=== PATIENT | male | born 1950 | race Caucasian/White ===

== ENCOUNTER 2017-12-04 08:14 | Emergency (ER) | payer OTHER, BC ==
[2017-12-04] MEDS ORDERED: HYDROCODONE/APAP 10/325 TAB ONE (09:57)
[2017-12-04 09:58] LABS: Albumin 3.9 g/dL (3.4-5.0); Bilirubin Direct 0.1 mg/dL (0-0.2); Bilirubin Total 0.4 mg/dL (0.2-1.0); CKMB Creatine Kinase MB 6.2 ng/mL (0.3-3.6); Magnesium 2.2 mg/dL (1.8-2.4); Protein, Total 7.3 g/dL (6.4-8.2)
[2017-12-04 10:04] LABS: Absolute Lymphocytes (CBC) 1.2 K/uL (0.7-4.9); Absolute Monocytes 0.8 K/uL (0.1-1.3); Absolute Neutrophil 2.3 K/uL (1.8-8.0); Basophils % 0.7 % (0-1.3); Eosinophils % 1.9 % (0-4.4); Hematocrit 47.3 % (39.6-49.0); Lymphocytes % 26.8 % (15.3-44.8); MCH 32.5 pg (27.0-35.0); MCV 95.9 fL (80-100); MPV 10.5 fL (7.6-11.3); Monocytes % 18.2 % (3.3-12.3); RBC Red Blood Cell Count 4.93 M/uL (4.33-5.43)
[2017-12-04 10:09] LABS: Protime INR 0.97
--- NOTE | 2017-12-04 10:14 | RAD REPORT ---
EXAM DESCRIPTION: RAD - Chest Pa And Lat (2 Views) - 12/04/2017 9:50 am CLINICAL HISTORY: shoulder pain, right sided back pain Chest pain. COMPARISON: No comparisons FINDINGS: The lungs are clear. The heart is normal in size. No displaced fractures. IMPRESSION: No acute or concerning finding suspected.
--- NOTE | 2017-12-04 10:15 | RAD REPORT ---
EXAM DESCRIPTION: RAD - C Spine W Obliques - 12/04/2017 9:58 am CLINICAL HISTORY: neck pain Radiculopathy COMPARISON: No comparisons FINDINGS: Cervical bodies are normal in height and alignment.No fracture or acute bony process seen. Disc thinning with small endplate osteophyte noted at C4-5. No prevertebral soft tissue thickening or other suspicious soft tissue finding. The odontoid is luis alberto l and the lateral masses are symmetric. Oblique view shows moderate bony narrowing of the exit foramina at C4-5 bilaterally and the left exit foramen at C5-6. IMPRESSION: Moderate midcervical spondylosis.
--- NOTE | 2017-12-04 10:38 | RAD REPORT ---
EXAM DESCRIPTION: CT - Angio Aorta For Dissection - 12/04/2017 10:18 am CLINICAL HISTORY: Right-sided chest, shoulder and arm pain COMPARISON: None. TECHNIQUE: Dynamically enhanced 3 mm thick images of the chest, abdomen, and upper pelvis were obtai ab during administration of approximately 150mL Isovue 370 IV contrast. Sagittal and coronal reconst ruction images were generated and reviewed. Exam utilizes a protocol to evaluate entire course of the aorta. All CT scans are performed using dose optimization technique as appropriate and may include automated exposure control or mA/KV adjustment according to patient size. FINDINGS: Aorta is normal in diameter with no dissection or other acute aortic findings. Reconstruct ion images show no significant findings. Aortic arch is 3 vessel with no origin stenosis. Vertebral a rtery origins normal as well. Pulmonary arteries are normal as well. No cardiomegaly, pericardial thickening or pericardial effusio n. No mass or infiltrate in the lung parenchyma. No pleural thickening, pleural effusion or pneumothorax . No abnormal mediastinal or hilar mass or lymphadenopathy seen. No chest wall mass or abnormal axillar y lymphadenopathy. Celiac, SMA and renal arteries show no suspicious findings. Solid abdominal viscera and bowel show no significant findings. Liver appears fatty infiltrated. No mass or abnormal lymphadenopathy. No free air, free fluid or inflammatory stranding. Prostate gland is prominent with a lobulated contour proj ecting into the bladder base. Bladder base mass and prostatic invasion can have a similar appearance. Correlation can be made with any hematuria or PSA abnormalities. Followup nonemergent bladder sonogr aphy may be helpful for further characterization. Bony degenerative changes are present. This is most notable at the L4-5 disc level. No acute bone fin dings seen. IMPRESSION: Negative CT scan of the aorta for acute or significant finding. Lobulated contour to the bladder base possibly a bladder mass or prostatic hypertrophy. Correlation c an be made with PSA or UA lab abnormalities. Followup nonemergent bladder ultrasound may be helpful f or further characterization as well. Probable fatty infiltration of the liver.
[2017-12-04 10:51] LABS: Blood Morphology Comment NOT SEEN (NOT SEEN); Platelet Estimate ADEQ
--- NOTE | 2017-12-04 10:56 | ER ---
Nurse's Notes [facility] Name: Robinson Leung Age: 67 yrs Sex: Male : 1950 Arrival Date: 12/04/2017 Time: 08:20 Bed 5 Private MD: Royal Galvan Diagnosis: Radiculopathy, cervical region Presentation: 12/04 08:35 Presenting complaint: Patient states: Right neck, arm, and shoulder pain since Thursday, jl7 denies trauma. Transition of care: patient was not received from another setting of care. Onset of symptoms was November 29, 2017. Risk Assessment: Do you want to hurt yourself or someone else? Patient reports no desire to harm self or others. Initial Sepsis Screen: Does the patient meet any 2 criteria? No. Patient's initial sepsis screen is negative. Does the patient have a suspected source of infection? No. Patient's initial sepsis screen is negative. Care prior to arrival: None. 08:35 Method Of Arrival: Ambulatory jl7 08:35 Acuity: NELSY 3 jl7 Triage Assessment: 08:35 General: Appears in no apparent distress. uncomfortable, Behavior is calm, cooperative, jl7 appropriate for age. Pain: Complains of pain in right bicep, right mid cervical area, right trapezius and right posterior upper chest wall Pain does not radiate. Pain currently is 5 out of 10 on a pain scale. at worst was 7 out of 10 on a pain scale. Quality of pain is described as aching, Pain began 5 days ago Is continuous. EENT: No signs and/or symptoms were reported regarding the EENT system. Neuro: Level of Consciousness is awake, alert, obeys commands, Oriented to person, place, time, situation, [place] are equal bilaterally Moves all extremities. Gait is steady, Speech is normal, Facial symmetry appears normal. Cardiovascular: Patient's skin is warm and dry. Pulses are palpable in right radial artery and left radial artery. Respiratory: Airway is patent Respiratory effort is even, unlabored, Respiratory pattern is regular, symmetrical. GI: No signs and/or symptoms were reported involving the gastrointestinal system. : No signs and/or symptoms were reported regarding the genitourinary system. Derm: Skin is pink, warm \T\ dry. Musculoskeletal: Circulation, motion, and sensation intact. Capillary refill < 3 seconds, in bilateral fingers. Reports pain in right bicep, right mid cervical area, right trapezius and right posterior upper chest wall. Historical: - Allergies: 08:52 No Known Allergies; jl7 - Home Meds: 08:52 Tekturna 300 mg oral tab 1 tab once daily [Active]; amlodipine 5 mg tab [Active]; jl7 tamsulosin 0.4 mg oral cp24 [Active]; allopurinol 300 mg Oral tab [Active]; pantoprazole 40 mg oral TbEC [Active]; Ecotrin 81 mg Oral [Active]; CoQ-10 oral 200 mg oral [Active]; Vitamin D Oral [Active]; trazodone 50 mg Oral tab [Active]; Metoprolol Tartrate Oral [Active]; isosorbide mononitrate 30 mg Oral Tb24 1 tab once daily [Active]; - PMHx: 08:52 Hypertension; Hyperlipidemia; Enlarged Prostate; Acid Reflux; jl7 - PSHx: 08:52 Bilateral Shoulder; Back; Right Bicep; jl7 - Immunization history:: Adult Immunizations not up to date. - Social history:: Smoking status: Patient/guardian denies using tobacco. - Ebola Screening: : No symptoms or risks identified at this time. Screenin:35 Abuse screen: Denies threats or abuse. Denies injuries from another. Nutritional jl7 screening: No deficits noted. Tuberculosis screening: No symptoms or risk factors identified. Fall Risk IV access (20 points). Assessment: 08:35 General: See triage assessment. Neuro: Level of Consciousness is awake, alert, obeys jl7 commands, Oriented to person, place, time, situation, [place] Wheeler are equal bilaterally. 09:30 Reassessment: No changes from previously documented assessment. Patient and/or family jl7 updated on plan of care and expected duration. Pain level reassessed. Patient is alert, oriented x 3, equal unlabored respirations, skin warm/dry/pink. 10:30 Reassessment: Patient and/or family updated on plan of care and expected duration. Pain jl7 level reassessed. Patient is alert, oriented x 3, equal unlabored respirations, skin warm/dry/pink. Vital Signs: 08:35 BP 156 / 90; Pulse 81; Resp 16 S; Temp 98.9(O); Pulse Ox 96% on R/A; Weight 113.4 kg jl7 (R); Height 6 ft. 0 in. (182.88 cm) (R); Pain 5/10; 09:30 BP 113 / 74; Pulse 64; Resp 16; Pulse Ox 96% ; jl7 10:30 BP 119 / 72; Pulse 66; Resp 16 S; Pulse Ox 99% on R/A; jl7 08:35 Body Mass Index 33.91 (113.40 kg, 182.88 cm) jl7 ED Course: 08:20 Patient arrived in ED. as 08:20 Royal Galvan MD is Private Physician. as 08:24 Hiro Chao PA is PHCP. jmm 08:24 Prem Buckner MD is Attending Physician. jmm 08:25 Quang Medina RN is Primary Nurse. jl7 08:35 Arm band placed on left wrist. jl7 08:35 Patient has correct armband on for positive identification. Placed in gown. Bed in low jl7 position. Call light in reach. Side rails up X 1. media monitor on. Pulse ox on. NIBP on. 08:47 Triage completed. jl7 08:58 EKG done, by entry level installation technician. reviewed by Hiro GARCIA. at1 09:08 Inserted saline lock: 20 gauge in left antecubital area, using aseptic technique. Blood ag collected. 09:50 Chest Pa And Lat (2 Views) XRAY In Process Unspecified. EDMS 09:50 C Spine W Obliques XRAY In Process Unspecified. EDMS 10:[address] via stretcher. sw 10:18 CT Aorta for Dissection In Process Unspecified. EDMS 10:18 CT completed. Patient tolerated procedure well. Patient moved back from CT. sw 10:55 Jer Wong MD is Referral Physician. jmm 11:03 No provider procedures requiring assistance completed. IV discontinued, intact, jl7 bleeding controlled, No redness/swelling at site. Pressure dressing applied. Administered Medications: 10:10 Not Given (Patient Refused): Union 10 mg-325 mg 1 tabs PO once jl7 Outcome: 10:55 Discharge ordered by . jmm 11:03 Discharged to home ambulatory. jl7 11:03 Condition: stable 11:03 Discharge instructions given to patient, Instructed on discharge instructions, follow up and referral plans. medication usage, Demonstrated understanding of instructions, follow-up care, medications, Prescriptions given X 2. 11:04 Patient left the ED. jl7 Signatures: Dispatcher [employer] EDMS Hiro Chao PA PA jmm Martinez, Amelia as gonzales, Amanda, tombstone polisher EKG Tat1 Annmarie Topete Shannon sw Leal, Jahala, RN RN jl7
--- NOTE | 2017-12-04 10:56 | EDPHYS ---
Physician Documentation [facility] Name: Robinson Leung Age: 67 yrs Sex: Male : 1950 Arrival Date: 12/04/2017 Time: 08:20 Bed 5 Private MD: Royal Galvan ED Physician Prem Buckner HPI: 12/04 08:42 This 67 yrs old Male presents to ER via Unassigned with complaints of Neck jmm Pain, <24hrs Old, Arm Pain. 08:42 The patient or guardian complains of pain, that is acute. The symptoms are located. jmm Onset: The symptoms/episode began/occurred gradually, 5 day(s) ago. Associated signs and symptoms: Pertinent negatives: nausea, numbness, chest pain. This is a 67 year old male with a history of htn that presents to the ED with right sided neck pain, right upper back pain, which radiates to his right biceps region. Patient states 3 years ago he had a biceps repair and shoulder tendon repair but has not had any problem since. Patient denies chest pain or new onset weakness. Denies having a tearing back pain or shortness of breath. Patient denies fever. 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 . Historical: - Allergies: 08:52 No Known Allergies; jl7 - Home Meds: 08:52 Tekturna 300 mg oral tab 1 tab once daily [Active]; amlodipine 5 mg tab [Active]; jl7 tamsulosin 0.4 mg oral cp24 [Active]; allopurinol 300 mg Oral tab [Active]; pantoprazole 40 mg oral TbEC [Active]; Ecotrin 81 mg Oral [Active]; CoQ-10 oral 200 mg oral [Active]; Vitamin D Oral [Active]; trazodone 50 mg Oral tab [Active]; Metoprolol Tartrate Oral [Active]; isosorbide mononitrate 30 mg Oral Tb24 1 tab once daily [Active]; - PMHx: 08:52 Hypertension; Hyperlipidemia; Enlarged Prostate; Acid Reflux; jl7 - PSHx: 08:52 Bilateral Shoulder; Back; Right Bicep; jl7 - Immunization history:: Adult Immunizations not up to date. - Social history:: Smoking status: Patient/guardian denies using tobacco. - Ebola Screening: : No symptoms or risks identified at this time. ROS: 08:46 Constitutional: Negative for fever, chills, and weight loss, Cardiovascular: Negative [facility] for chest pain, palpitations, and edema, Respiratory: Negative for shortness of breath, cough, wheezing, and pleuritic chest pain, Abdomen/GI: Negative for abdominal pain, nausea, vomiting, diarrhea, and constipation. 08:46 Back: Positive for pain at rest, pain with movement. 08:46 Neuro: Negative for weakness, numbness. 08:46 All other systems are negative. Exam: 08:46 Head/Face: atraumatic. jmm 08:46 Constitutional: The patient appears in no acute distress, alert, awake. 08:46 Neck: C-spine: appears grossly normal, no vertebral tenderness, ROM/movement: is normal. 08:46 Cardiovascular: Rate: normal, Rhythm: regular, Pulses: no pulse deficits are appreciated. 08:46 Respiratory: the patient does not display signs of respiratory distress, Respirations: normal, Breath sounds: are clear throughout. 08:46 Back: ROM is normal. 08:46 Musculoskeletal/extremity: ROM: intact in all extremities, Pulses: noted to be 4+ in the right radial artery and left radial artery. 08:46 Skin: Appearance: Color: normal in color. 08:46 Neuro: Orientation: is normal, Mentation: is normal, Memory: is normal, Gait: is steady. 08:46 Psych: Behavior/mood is pleasant, cooperative. Vital Signs: 08:35 BP 156 / 90; Pulse 81; Resp 16 S; Temp 98.9(O); Pulse Ox 96% on R/A; Weight 113.4 kg jl7 (R); Height 6 ft. 0 in. (182.88 cm) (R); Pain 5/10; 09:30 BP 113 / 74; Pulse 64; Resp 16; Pulse Ox 96% ; jl7 10:30 BP 119 / 72; Pulse 66; Resp 16 S; Pulse Ox 99% on R/A; jl7 08:35 Body Mass Index 33.91 (113.40 kg, 182.88 cm) jl7 MDM: 08:30 Patient medically screened. bandar 10:53 Data reviewed: vital signs, nurses notes, lab test result(s), EKG, radiologic studies, [facility] CT scan, plain films. Counseling: I had a detailed discussion with the patient and/or guardian regarding: the historical points, exam findings, and any diagnostic results supporting the discharge/admit diagnosis, radiology results, the need for outpatient follow up, to return to the emergency department if symptoms worsen or persist or if there are any questions or concerns that arise at home. ED course: The patient has no focal neuro deficits in the ED. Patient has full greenhouse manager strength and normal right radial pulse. The patient is encouraged to follow up with neurosurgery for further evaluation. Patient otherwise advised to return to the ED if he develops increased pain, weakness, or any other concerning symptoms. Patient understood and agrees with the plan of care. . 12/04 08:41 Order name: Basic Metabolic Panel; Complete Time: 10: 12/04 08:41 Order name: CBC with Diff; Complete Time: 10:12/04 08:41 Order name: Ckmb; Complete Time: : 12/04 08:41 Order name: CPK; Complete Time: 10: [facility] 12/04 08:41 Order name: LFT's; Complete Time: 10: 12/04 08:41 Order name: Magnesium; Complete Time: 10:12/04 08:39 Order name: Chest Pa And Lat (2 Views) XRAY; Complete Time: : [facility] 12/04 08:41 Order name: NT PRO-BNP; Complete Time: :12/04 08:41 Order name: PT-INR; Complete Time: 10: 12/04 08:41 Order name: Ptt, Activated; Complete Time: : [facility] 12/04 08:41 Order name: Troponin (emerg Dept Use Only); Complete Time: 10: 12/04 09:10 Order name: C Spine W Obliques XRAY; Complete Time: 10: [facility] 12/04 09:10 Order name: CT Aorta for Dissection; Complete Time: 10:45 [facility] 12/04 10:51 Order name: Manual Differential; Complete Time: 10:53 [facility] 12/04 08:41 Order name: EKG; Complete Time: 09:24 12/04 08:41 Order name: Cardiac monitoring; Complete Time: 08:58 12/04 08:41 Order name: EKG - Nurse/Tech; Complete Time: 08:58 [facility] 12/04 08:41 Order name: IV Saline Lock; Complete Time: 08:58 [facility] 12/04 08:41 Order name: Labs collected and sent; Complete Time: 08:58 [facility] 12/04 08:41 Order name: O2 Per Protocol; Complete Time: 08:58 [facility] 12/04 08:41 Order name: O2 Sat Monitoring; Complete Time: 08:58 [facility] Administered Medications: 10:10 Not Given (Patient Refused): Waterman 10 mg-325 mg 1 tabs PO once jl7 Disposition: 11:23 Co-signature as Attending Physician, Prem Buckner MD I agree with the assessment and bandar plan of care. Disposition: 12/04/17 10:55 Discharged to Home. Impression: Radiculopathy, cervical region. - Condition is Stable. - Discharge Instructions: Cervical Radiculopathy. - Prescriptions for Tylenol- Codeine #3 300-30 mg Oral Tablet - take 1 tablet by ORAL route every 6 hours As needed; 12 tablet. Zanaflex 4 mg Oral Tablet - take 1 tablet by ORAL route every 8 hours As needed; 20 tablet. - Medication Reconciliation Form, Thank You Letter, Antibiotic Education, Prescription Opioid Use form. - Follow up: Jer Wong MD; When: 2 - 3 days; Reason: Continuance of care. Signatures: Dispatcher [employer] EDPrem Figueroa MD MD cha Mickail, Joel, PA PA Quang Galan, RN RN jl7 Corrections: (The following items were deleted from the chart) 09:08 09:04 Bilateral blood pressure ordered. cesar guerrero 11:04 10:55 12/04/2017 10:55 Discharged to Home. Impression: Radiculopathy, cervical region. jl7 Condition is Stable. Forms are Medication Reconciliation Form, Thank You Letter, Antibiotic Education, Prescription Opioid Use. Follow up: Jer Wong; When: 2 - 3 days; Reason: Continuance of care. cesar
[2017-12-04 11:09] VITALS: TEMP 98.9
[2017-12-04 11:11] VITALS: BP 119/72; O2SAT 99
--- NOTE | 2017-12-04 12:51 | EKG ---
Test Date: 2017-12-04 Test Time: 08:58:26 Renderer: NEISHA/Ivana MEASUREMENT RESULTS: Intervals: Rate: 76 CT: 172 QRSD: 94 QT: 390 QTc: 438 [place]: P: 39 CT: 172 QRS: 0 T: 33 INTERPRETIVE STATEMENTS: Normal sinus rhythm Normal ECG No previous ECG available for comparison Electronically Signed On 12-04-17 12:50:51 CDT by Brenton Arias
== END 2017-12-04 11:04 | disposition home or self-care (01) ==
LOC: ER 08:14
DX: M54.12 Radiculopathy, cervical region (principal); I10 Essential (primary) hypertension; E78.5 Hyperlipidemia, unspecified; N40.0 Benign prostatic hyperplasia without lower urinary tract symptoms; K21.9 Gastro-esophageal reflux disease without esophagitis
CPT/HCPCS: 36415; 71046; 71275; 72050; 74175; 80048; 80076; 82550; 82553; 83735; 83880; 84484; 85025; 85610; 85730; 93005; 99285; Q9967

== ENCOUNTER 2017-12-06 09:43 | Emergency (ER) | payer OTHER, BC ==
--- NOTE | 2017-12-06 11:13 | ER ---
Nurse's Notes [facility] Name: Robinson Leung Age: 67 yrs Sex: Male : 1950 Arrival Date: 12/06/2017 Time: 09:45 Bed 15 Private MD: Diagnosis: Zoster [herpes zoster] Presentation: 12/06 10:09 Presenting complaint: Patient states: Seen here 2 days ago with neck and shoulder pain. aj Reports pain is no better and now has rash on right arm. Transition of care: patient was not received from another setting of care. Onset of symptoms was December 04, 2017. Risk Assessment: Do you want to hurt yourself or someone else? Patient reports no desire to harm self or others. Initial Sepsis Screen: Does the patient meet any 2 criteria? No. Patient's initial sepsis screen is negative. Does the patient have a suspected source of infection? No. Patient's initial sepsis screen is negative. Care prior to arrival: None. 10:09 Method Of Arrival: Ambulatory aj 10:09 Acuity: NELSY 4 aj Triage Assessment: 10:11 General: Appears in no apparent distress. comfortable, Behavior is calm, cooperative, aj appropriate for age. Pain: Complains of pain in right arm. Neuro: Level of Consciousness is awake, alert, obeys commands. Respiratory: Airway is patent Respiratory effort is even, unlabored. Derm: Skin is intact, is healthy with good turgor, Skin is pink, warm \T\ dry. normal. Musculoskeletal: Range of motion:. Historical: - Allergies: 10:11 No Known Allergies; aj - Home Meds: 10:11 allopurinol 300 mg Oral tab [Active]; amlodipine 5 mg tab [Active]; CoQ-10 200 mg Oral aj [Active]; Ecotrin 81 mg Oral [Active]; isosorbide mononitrate 30 mg Oral Tb24 1 tab once daily [Active]; Metoprolol Tartrate Oral [Active]; pantoprazole 40 mg Oral TbEC [Active]; tamsulosin 0.4 mg Oral cp24 [Active]; Tekturna 300 mg Oral tab 1 tab once daily [Active]; trazodone 50 mg Oral tab [Active]; Vitamin D Oral [Active]; - PMHx: 10:11 acid reflux; enlarged prostate; Hyperlipidemia; Hypertension; aj - PSHx: 10:11 Bilateral Shoulder; Back; Right Bicep; aj - Immunization history:: Adult Immunizations up to date. - Social history:: Smoking status: Patient/guardian denies using tobacco. - Ebola Screening: : Patient negative for fever greater than or equal to 101.5 degrees Fahrenheit, and additional compatible Ebola Virus Disease symptoms Patient denies exposure to infectious person Patient denies travel to an Ebola-affected area in the 21 days before illness onset No symptoms or risks identified at this time. Screenin:30 Abuse screen: Denies threats or abuse. Nutritional screening: No deficits noted. rb1 Tuberculosis screening: No symptoms or risk factors identified. Fall Risk None identified. Assessment: 10:30 General: Appears in no apparent distress. comfortable, Behavior is calm, cooperative, rb1 Denies fever. Pain: Complains of pain in right arm Pain currently is 5 out of 10 on a pain scale. Pain began 1 day ago. Neuro: Level of Consciousness is awake, alert, obeys commands, Oriented to person, place, time, situation. Cardiovascular: Capillary refill < 3 seconds is brisk in bilateral fingers. Respiratory: Airway is patent Respiratory effort is even, unlabored, Respiratory pattern is regular, symmetrical. GI: No signs and/or symptoms were reported involving the gastrointestinal system. : No signs and/or symptoms were reported regarding the genitourinary system. Derm: Rash noted that is vesicular, on right arm. Musculoskeletal: Range of motion: intact in all extremities. 11:27 Reassessment: Patient appears in no apparent distress at this time. No changes from rb1 previously documented assessment. Provider at bedside. Vital Signs: 10:11 BP 115 / 72; Pulse 78; Resp 19; Temp 98.8; Pulse Ox 97% on R/A; Weight 113.4 kg; Height aj 6 ft. 0 in. (182.88 cm); 11:10 BP 137 / 77; Pulse 66; Resp 20; Pulse Ox 99% ; rb1 10:11 Body Mass Index 33.91 (113.40 kg, 182.88 cm) aj ED Course: 09:45 Patient arrived in ED. as 10:10 Triage completed. aj 10:11 Arm band placed on left wrist. Patient placed in an exam room. aj 10:30 Patient has correct armband on for positive identification. Placed in gown. Bed in low rb1 position. Call light in reach. Side rails up X 1. Pulse ox on. NIBP on. 10:36 Aristides Moser MD is Attending Physician. kdr 10:45 Nayeli Gamez, RN is Primary Nurse. rb1 11:27 No provider procedures requiring assistance completed. Patient did not have IV access rb1 during this emergency room visit. Administered Medications: No medications were administered Outcome: 11:12 Discharge ordered by . kdr 11:27 Discharged to home ambulatory. rb1 11:27 Condition: stable 11:27 Discharge instructions given to patient, Instructed on discharge instructions, follow up and referral plans. medication usage, Demonstrated understanding of instructions, follow-up care, medications, Prescriptions given X 4. 11:29 Patient left the ED. rb1 Signatures: Nancy Madsen, RN RN aj Aristides Moser MD MD kdr Ailin Sears as Nayeli Gamez, RN RN rb1
--- NOTE | 2017-12-06 11:13 | EDPHYS ---
Physician Documentation [facility] Name: Robinson Leung Age: 67 yrs Sex: Male : 1950 Arrival Date: 12/06/2017 Time: 09:45 Bed 15 Private MD: ED Physician Aristides Moser HPI: 12/06 13:41 This 67 yrs old Male presents to ER via Ambulatory with complaints of Back kdr Pain, Arm Pain, Skin Sore(s). 13:42 The patient's rash thought to be caused by an unknown cause. The rash is located on the kdr Dermatome 5 \T\ 6 in right arm from shoulder down to thenar eminence. The rash can be described as bullous, macular, papular, patchy, raised. Onset: The symptoms/episode began/occurred gradually, 2 day(s) ago. Associated signs and symptoms: Pertinent positives: burning sensation, itching, Pain Pertinent negatives: swelling of lips, swelling of throat, swelling of tongue, vomiting, wheezing. Severity of symptoms: At their worst the symptoms were mild in the emergency department the symptoms are unchanged. Treatment given at home: Rx meds/[place]. The patient has not experienced similar symptoms in the past. Historical: - Allergies: 10:11 No Known Allergies; aj - Home Meds: 10:11 allopurinol 300 mg Oral tab [Active]; amlodipine 5 mg tab [Active]; CoQ-10 200 mg Oral aj [Active]; Ecotrin 81 mg Oral [Active]; isosorbide mononitrate 30 mg Oral Tb24 1 tab once daily [Active]; Metoprolol Tartrate Oral [Active]; pantoprazole 40 mg Oral TbEC [Active]; tamsulosin 0.4 mg Oral cp24 [Active]; Tekturna 300 mg Oral tab 1 tab once daily [Active]; trazodone 50 mg Oral tab [Active]; Vitamin D Oral [Active]; - PMHx: 10:11 acid reflux; enlarged prostate; Hyperlipidemia; Hypertension; aj - PSHx: 10:11 Bilateral Shoulder; Back; Right Bicep; aj - Immunization history:: Adult Immunizations up to date. - Social history:: Smoking status: Patient/guardian denies using tobacco. - Ebola Screening: : Patient negative for fever greater than or equal to 101.5 degrees Fahrenheit, and additional compatible Ebola Virus Disease symptoms Patient denies exposure to infectious person Patient denies travel to an Ebola-affected area in the 21 days before illness onset No symptoms or risks identified at this time. ROS: 13:42 Constitutional: Negative for fever, chills, and weight loss, Eyes: Negative for injury, kdr pain, redness, and discharge, ENT: Negative for injury, pain, and discharge, Neck: Negative for injury, pain, and swelling, Cardiovascular: Negative for chest pain, palpitations, and edema, Respiratory: Negative for shortness of breath, cough, wheezing, and pleuritic chest pain, Abdomen/GI: Negative for abdominal pain, nausea, vomiting, diarrhea, and constipation, Back: Negative for injury and pain, : Negative for injury, bleeding, discharge, and swelling, Neuro: Negative for headache, weakness, numbness, tingling, and seizure activity. Psych: Negative for depression, anxiety, suicide ideation, homicidal ideation, and hallucinations, Allergy/Immunology: Negative for hives, rash, and allergies, Endocrine: Negative for neck swelling, polydipsia, polyuria, polyphagia, and marked weight changes, Hematologic/Lymphatic: Negative for swollen nodes, abnormal bleeding, and unusual bruising. 13:42 MS/extremity: Positive for pain, The pain was seen here last week for shoulder and right upper extremity pain. Had significant work-up at that time with no focal diagnosis found. Now, for the last few days, he has had this developing rash as described above. Exam: 13:42 Constitutional: This is a well developed, well nourished patient who is awake, alert, kdr and in no acute distress. 13:42 Skin: rash can be described as erythematous, macular, papular, raised, vesicular. Vital Signs: 10:11 BP 115 / 72; Pulse 78; Resp 19; Temp 98.8; Pulse Ox 97% on R/A; Weight 113.4 kg; Height aj 6 ft. 0 in. (182.88 cm); 11:10 BP 137 / 77; Pulse 66; Resp 20; Pulse Ox 99% ; rb1 10:11 Body Mass Index 33.91 (113.40 kg, 182.88 cm) aj MDM: 11:12 Patient medically screened. kdr 13:42 Data reviewed: vital signs, nurses notes. Counseling: I had a detailed discussion with kdr the patient and/or guardian regarding: the historical points, exam findings, and any diagnostic results supporting the discharge/admit diagnosis, the need for outpatient follow up. Administered Medications: No medications were administered Disposition: 12/06/17 11:12 Discharged to Home. Impression: Zoster [herpes zoster]. - Condition is Stable. - Discharge Instructions: Shingles, [id number]. - Prescriptions for Ibuprofen 800 mg Oral Tablet - take 1 tablet by ORAL route every 8 hours As needed take with food; 15 tablet. Tylenol- Codeine #3 300-30 mg Oral Tablet - take 2 tablets by ORAL route every 6 hours As needed; 15 tablet. Valtrex 1 g Oral Tablet - take 1 tablet by ORAL route every 8 hours for 7 days; 21 tablet. Prednisone 20 mg Oral Tablet - take 1 tablet by ORAL route every 12 hours for 5 days Take one tablet BID for 5 days then one tablet each day for five days. Dispenses 15; 15 tablet. - Medication Reconciliation Form, Thank You Letter, Antibiotic Education, Prescription Opioid Use form. - Follow up: Private Physician; When: 2 - 3 days; Reason: If symptoms return, Further diagnostic work-up, Recheck today's complaints, Continuance of care, Re-evaluation by your physician. - Problem is new. - Symptoms are unchanged. Signatures: Nancy Madsen RN RN Aristides Donovan MD MD kdr Nayeli Gamez RN RN rb1 Corrections: (The following items were deleted from the chart) 11:29 11:12 12/06/2017 11:12 Discharged to Home. Impression: Zoster [herpes zoster]. rb1 Condition is Stable. Forms are Medication Reconciliation Form, Thank You Letter, Antibiotic Education, Prescription Opioid Use. Follow up: Private Physician; When: 2 - 3 days; Reason: If symptoms return, Further diagnostic work-up, Recheck today's complaints, Continuance of care, Re-evaluation by your physician. Problem is new. Symptoms are unchanged. kdr
[2017-12-06 11:39] VITALS: TEMP 98.8
[2017-12-06 11:40] VITALS: BP 137/77; O2SAT 99
== END 2017-12-06 11:29 | disposition home or self-care (01) ==
LOC: ER 09:43
DX: B02.9 Zoster without complications (principal); E78.5 Hyperlipidemia, unspecified
CPT/HCPCS: 99283